=== PATIENT | female | born 1945 | race Caucasian/White ===

== ENCOUNTER 2017-02-27 12:19 | Inpatient (IN) | END 2017-03-02 22:21 | disposition EXP | DRG 682 | DX: N17.9 Acute kidney failure, unspecified (principal); J18.9 Pneumonia, unspecified organism; J96.00 Acute respiratory failure, unspecified whether with hypoxia or hypercapnia; R65.21 Severe sepsis with septic shock; A41.9 Sepsis, unspecified organism; D61.818 Other pancytopenia; M31.7 Microscopic polyangiitis; M31.30 Wegener's granulomatosis without renal involvement; R18.8 Other ascites; D69.6 Thrombocytopenia, unspecified; I77.6 Arteritis, unspecified; J98.4 Other disorders of lung; E11.9 Type 2 diabetes mellitus without complications; I12.9 Hypertensive chronic kidney disease with stage 1 through stage 4 chronic kidney disease, or unspecified chronic kidney disease; N18.9 Chronic kidney disease, unspecified; K74.60 Unspecified cirrhosis of liver; K59.00 Constipation, unspecified ==